=== PATIENT | female | born 1960 | race Caucasian/White ===

== ENCOUNTER 2016-12-03 17:28 | Observation (INO) ==
--- NOTE | 2016-12-03 17:33 | Emergency Department Note ---
Disposition Clinical Impression: Chest pain, Hypertension Disposition: Admitted As Inpatient Condition: Good Chest Pain HPI - General Chief Complaint: ED Chest Pain Stated Complaint: chest pain Time Seen by Provider: 12/03/16 17:28 Source: patient Mode of arrival: EMS Limitations: no limitations Vital Signs Reviewed: Yes Nursing Notes Reviewed: Yes - History of Present Illness HPI Narrative: Patient began to have chest pain and pressure at work today so she came to the emergency department for evaluation. There is still pain present upon arrival. She denies any shortness of breath. No nausea or vomiting or admitted to. She has not had pain like this before. Pt complaint: chest pain Onset (ago): day(s) (1) Duration: constant Onset: during rest Pain Location: substernal Severity: mild Improves with: nothing Worsens with: nothing - Related Data Home Medications Medication Instructions Recorded Confirmed CloNIDine HCl 0.1 mg PO BID 10/19/14 12/03/16 Ropinirole [Requip] 0.5 mg PO HS 10/19/14 12/03/16 Albuterol Sulfate [Proair Hfa] 2 puff IH PRN PRN 07/21/15 12/03/16 Estradiol [Evelyn] 1 each TD AD 07/21/15 12/03/16 Lisinopril 10 mg PO DAILY 07/21/15 12/03/16 Meclizine HCl [Verticalm] 25 mg PO DAILY PRN 07/21/15 12/03/16 Metoprolol Succinate 100 mg PO DAILY 07/21/15 12/03/16 Tizanidine HCl [Zanaflex] 4 mg PO BID PRN 07/21/15 12/03/16 Losartan [Cozaar] 50 mg PO DAILY 12/03/16 12/03/16 Previous Rx's Medication Instructions Recorded OxyCODONE/APAP 5/325 [Percocet 1 each PO Q6HR PRN #15 tablet 07/21/15 5/325 MG] Allergies Allergy/AdvReac Type Severity Reaction Status Date / Time levofloxacin [From Levaquin] AdvReac Rash Verified 10/19/14 21:44 All systems ED: reviewed and negative except as stated. Review of Systems: As Per HPI Constitutional: Denies: fever, chills, weakness, weight change Eyes: Denies: eye pain, eye discharge, vision change ENT ED: Denies: ear pain, throat pain, dental pain, hearing loss, epistaxis, congestion, dysphagia Cardiovascular: Denies: chest pain, palpitations, dyspnea on exertion, edema, syncope Respiratory: Denies: cough, dyspnea, wheezes, hemoptysis, stridor Gastrointestinal: Denies: abdominal pain, nausea, vomiting, diarrhea, constipation, hematemesis, melena, hematochezia Genitourinary: Denies: dysuria, frequency, hematuria, discharge Musculoskeletal: Denies: back pain, neck pain, arthralgia, myalgia Integumentary: Denies: rash, abrasion, lesions Neurological: Denies: headache, weakness, numbness, paresthesias, confusion, abnormal gait, vertigo Psychiatric: Denies: anxiety, depression, suicidal thoughts, homicidal thoughts , auditory hallucinations, visual hallucinations Endocrine: Denies: fatigue Hematological/Lymphatic: Denies: easy bleeding, easy bruising Allergic/Immunologic: Denies: facial swelling, urticaria Chest Pain PMH - Past Medical History Medical history: Reports: hypertension, other Surgical history: Reports: cholecystectomy, herniorrhaphy, hysterectomy, other Psychiatric history: Reports: no psych history - Social History Smoking Status: Unknown if ever smoked Alcohol use: Reports: none Drug use: Reports: none Physical Exam - General Limitations: no limitations General appearance: alert, in no apparent distress - Head Head exam: atraumatic, normocephalic, normal inspection - Eye Eye exam: Present: normal appearance, PERRL, EOMI - ENT ENT exam: normal exam, normal oropharynx, mucous membranes moist - Neck Neck exam: Present: normal inspection - Chest Chest inspection: Present: normal inspection, symmetric chest wall rise - Respiratory Respiratory exam: Present: normal lung sounds bilaterally - Cardiovascular Cardiovascular exam: Present: regular rate, normal rhythm, normal heart sounds - Abdominal Exam Abdominal exam: Present: soft, Non-Tender. Absent: tenderness, distention, guarding, rebound, rigidity - Extremities Exam Extremities exam: Present: normal inspection, full ROM. Absent: tenderness, pedal edema - Expanded Lower Extremity Exam Hip/Pelvis exam: Present: normal inspection, full ROM - Back Exam Back exam: Present: normal inspection, full ROM. Absent: tenderness - Neurological Exam Neurological exam: Present: alert, oriented X3 - Psychiatric Psychiatric exam: Present: normal affect, normal mood - Skin Skin exam: Present: warm, dry, intact Course Vital Signs Temperature 98.4 F 12/03/16 17:29 Pulse Rate 49 12/03/16 17:29 Respiratory Rate 16 12/03/16 17:29 Blood Pressure 203/102 12/03/16 17:29 O2 Sat by Pulse Oximetry 100 12/03/16 17:29 Temperature 97.6 F 12/04/16 00:00 Pulse Rate 52 12/04/16 00:00 Respiratory Rate 17 12/04/16 00:00 Blood Pressure 151/65 12/04/16 00:00 O2 Sat by Pulse Oximetry 95 12/04/16 00:00 Oxygen Delivery Oxygen Delivery Room Air Chest Pain - MDM Narrative Medical decision making narrative: Discussed with Dr. Beltrán agrees to accept the patient. Your blood pressure was elevated today so please follow up with your doctor for a recheck - Lab Data Lab results reviewed: Yes I reviewed the patient's lab results. Result diagrams: 12/03/16 17:34 12/03/16 17:56 Lab Results 12/03/16 12/03/16 12/03/16 Range/Units 17:34 17:49 17:56 WBC 8.7 (4.3-11.1) K/mcL RBC 4.30 (3.82-4.97) M/mcL Hgb 14.9 (11.5-15.4) g/dL Hct 40.4 (35.3-44.9) % MCV 94.0 (83.0-100.0) fL MCH 34.7 H (28.0-33.3) pg MCHC 36.9 H (31.6-35.5) g/dL RDW 14.0 (11.5-14.5) % Plt Count 319 (140-400) K/mcL MPV 10.7 (9.4-12.4) fL Immature Gran % 0.2 (0-4) % Seg Neutrophils % 52.2 % Lymphocytes % 36.6 % Monocytes % 7.9 % Eosinophils % 2.4 % Basophils % 0.7 % Neutrophils # 4.5 (1.6-8.9) K/mcL Lymphocytes # 3.2 (0.6-4.6) K/mcL Monocytes # 0.7 (0.0-1.3) K/mcL Eosinophils # 0.2 (0.0-0.6) K/mcL Basophils # 0.1 (0.0-0.2) K/mcL Sodium 142 (136-145) mEq/L Potassium 4.2 (3.5-4.5) mEq/L Chloride 109 (98-109) mEq/L Carbon Dioxide 26 (19-29) mEq/L BUN 7 (7-20) mg/dL Creatinine 0.69 (0.57-1.11) mg/dL Est GFR ( Amer) > 60 (> 60) Est GFR (Non-Af Amer) > 60 (> 60) BUN/Creatinine Ratio 10 (6-26) Glucose 89 (70-99) mg/dL Calculated Osmolality 291 (280-300) Calcium 9.7 (8.6-10.8) mg/dL Total Bilirubin 0.3 (0.2-1.2) mg/dL AST 20 (5-34) Units/L ALT 13 (0-55) Units/L Alkaline Phosphatase 72 (38-126) Units/L Troponin I (0-0.03) ng/mL Serum Total Protein 7.0 (6.0-8.3) g/dL Albumin 3.5 (3.5-5.0) g/dL Globulin 3.5 (2.4-3.5) g/dL Albumin/Globulin Ratio 1.0 L (1.1-2.2) Urine Color Yellow (Yellow) Urine Clarity Clear (Clear) Urine pH 6.0 (5.0-8.0) pH Units Ur Specific Campbell 1.020 (1.010-1.025) Urine Protein Negative (Neg-Trace) mg/dL Urine Glucose (UA) Normal (Normal) mg/dL Urine Ketones Negative (Negative) mg/dL Urine Blood Large H (Negative) Urine Nitrite Negative (Negative) Urine Bilirubin Negative (Negative) Urine Urobilinogen Normal (Normal) mg/dL Ur Leukocyte Esterase Negative (Negative) Urine Microscopic RBC 15-30 H (0-3) per hpf Urine Microscopic WBC 0-3 (0-3) per hpf Ur Squamous Epith Cells Many H (None-Few) per lpf Urine Bacteria Many H (None-Few) per hpf Ur Culture Indicated? NO (NO) 12/03/16 Range/Units 17:56 WBC (4.3-11.1) K/mcL RBC (3.82-4.97) M/mcL Hgb (11.5-15.4) g/dL Hct (35.3-44.9) % MCV (83.0-100.0) fL MCH (28.0-33.3) pg MCHC (31.6-35.5) g/dL RDW (11.5-14.5) % Plt Count (140-400) K/mcL MPV (9.4-12.4) fL Immature Gran % (0-4) % Seg Neutrophils % % Lymphocytes % % Monocytes % % Eosinophils % % Basophils % % Neutrophils # (1.6-8.9) K/mcL Lymphocytes # (0.6-4.6) K/mcL Monocytes # (0.0-1.3) K/mcL Eosinophils # (0.0-0.6) K/mcL Basophils # (0.0-0.2) K/mcL Sodium (136-145) mEq/L Potassium (3.5-4.5) mEq/L Chloride (98-109) mEq/L Carbon Dioxide (19-29) mEq/L BUN (7-20) mg/dL Creatinine (0.57-1.11) mg/dL Est GFR ( Amer) (> 60) Est GFR (Non-Af Amer) (> 60) BUN/Creatinine Ratio (6-26) Glucose (70-99) mg/dL Calculated Osmolality (280-300) Calcium (8.6-10.8) mg/dL Total Bilirubin (0.2-1.2) mg/dL AST (5-34) Units/L ALT (0-55) Units/L Alkaline Phosphatase (38-126) Units/L Troponin I 0.01 (0-0.03) ng/mL Serum Total Protein (6.0-8.3) g/dL Albumin (3.5-5.0) g/dL Globulin (2.4-3.5) g/dL Albumin/Globulin Ratio (1.1-2.2) Urine Color (Yellow) Urine Clarity (Clear) Urine pH (5.0-8.0) pH Units Ur Specific Campbell (1.010-1.025) Urine Protein (Neg-Trace) mg/dL Urine Glucose (UA) (Normal) mg/dL Urine Ketones (Negative) mg/dL Urine Blood (Negative) Urine Nitrite (Negative) Urine Bilirubin (Negative) Urine Urobilinogen (Normal) mg/dL Ur Leukocyte Esterase (Negative) Urine Microscopic RBC (0-3) per hpf Urine Microscopic WBC (0-3) per hpf Ur Squamous Epith Cells (None-Few) per lpf Urine Bacteria (None-Few) per hpf Ur Culture Indicated? (NO) - Radiology Data Radiology results reviewed: Yes I reviewed the patient's radiology results. - EKG Data EKG attestation: Yes I reviewed and interpreted this EKG. EKG results narrative: EKG shows sinus bradycardia without acute ST or T-wave changes. Rate is 51 bpm R axis 75 degrees no acute ischemia noted. As read by myself.
[2016-12-03 17:56] LABS: Bilirubin,Urine Negative (Negative); Blood,Urine Large (Negative); Clarity,Urine Clear (Clear); Color,Urine Yellow (Yellow); Glucose,Urine (UA) Normal (Normal); Ketones,Urine Negative (Negative); Leukocyte Esterase,Urine Negative (Negative); Nitrite,Urine Negative (Negative); Protein,Urine Negative (Neg-Trace); Urobilinogen,Urine Normal (Normal)
[2016-12-03] MEDS: Nitroglycerin 0.4 MG TAB.SUBL SL PRN ×3 (17:57→18:26)
[2016-12-03 18:01] LABS: Bacteria,Urine Many per hpf (None-Few); RBC,Urine 15-30 per hpf (0-3); Squamous Epithelial Cell,Urine Many per lpf (None-Few); WBC,Urine 0-3 per hpf (0-3)
[2016-12-03 18:20] LABS: Basophils # 0.1 K/mcL (0.0-0.2); Basophils % 0.7 %; Eosinophils # 0.2 K/mcL (0.0-0.6); Eosinophils % 2.4 %; Hematocrit 40.4 % (35.3-44.9); Hemoglobin 14.9 g/dL (11.5-15.4); Immature Granulocytes % 0.2 % (0-4); Lymphocytes # 3.2 K/mcL (0.6-4.6); Lymphocytes % 36.6 %; Mean Corpuscular HGB Conc 36.9 g/dL (31.6-35.5); Mean Corpuscular Hemoglobin 34.7 pg (28.0-33.3); Mean Platelet Volume 10.7 fL (9.4-12.4); Monocytes # 0.7 K/mcL (0.0-1.3); Monocytes % 7.9 %; Neutrophils # 4.5 K/mcL (1.6-8.9); Platelet Count 319 K/mcL (140-400); Segmented Neutrophils % 52.2 %
[2016-12-03 18:31] LABS: Alanine Aminotransferase 13 Units/L (0-55); Albumin 3.5 g/dL (3.5-5.0); Alkaline Phosphatase 72 Units/L (38-126); Aspartate Amino Transferase 20 Units/L (5-34); BUN/Creatinine Ratio 10 (6-26); Bilirubin,Total 0.3 mg/dL (0.2-1.2); Blood Urea Nitrogen 7 mg/dL (7-20); Calcium 9.7 mg/dL (8.6-10.8); Carbon Dioxide 26 mEq/L (19-29); Chloride 109 mEq/L (98-109); Globulin 3.5 g/dL (2.4-3.5); Glucose 89 mg/dL (70-99); Osmolality,Calculated 291 (280-300); Potassium 4.2 mEq/L (3.5-4.5); Sodium 142 mEq/L (136-145); eGFR For African Americans > 60 (> 60); eGFR For Non-African Americans > 60 (> 60)
[2016-12-03] MEDS ORDERED: Nitroglycerin 1 INCH/GM PACKET TP ONE (18:37)
[2016-12-03] MEDS ORDERED: Nitroglycerin 0.4 MG TAB.SUBL SL PRN (20:46)
[2016-12-03] MEDS ORDERED: tiZANidine 4 MG TABLET PO PRN (20:46)
[2016-12-03] MEDS ORDERED: *HR* OxyCODONE/APAP 5/325 TABLET PO PRN (20:46)
[2016-12-03] MEDS ORDERED: rOPINIRole 0.25 MG TABLET PO SCH (21:00)
[2016-12-03 21:09] LABS: Prothrombin Time 10.8 Seconds (9.4-12.1)
[2016-12-03 21:12] LABS: Activated Partial Thrombo Time 30.1 Seconds (26.0-36.0)
[2016-12-03] MEDS ORDERED: Metoprolol XL (24 HR) Succ 50 MG TAB.ER.24H PO SCH (21:45)
[2016-12-03] MEDS: ESTRADIOL TP SCH (21:48)
[2016-12-03] MEDS: cloNIDine HCl 0.1 MG TABLET PO SCH (22:13)
[2016-12-04 07:53] VITALS: BP 119/67
[2016-12-04] MEDS: cloNIDine HCl 0.1 MG TABLET PO SCH (08:28)
[2016-12-04] MEDS ORDERED: Metoprolol XL (24 HR) Succ 50 MG TAB.ER.24H PO SCH (09:00)
[2016-12-04] MEDS ORDERED: *HR* OxyCODONE/APAP 5/325 TABLET PO PRN (09:36)
[2016-12-04] MEDS: ESTRADIOL TP SCH (09:55)
--- NOTE | 2016-12-04 11:14 | Internal Med History&Physical ---
Date of Encounter: 12/04/16 Time of Encounter: 11:11 Assessment and Plan (1) Chest pain Current visit: Yes Status: Acute Chest pain is resolved problem was negative EKG is negative etc. She has a follow-up appointment with Dr. Gray. I reviewed her past history. 2014 she had a stress test which was negative. She had an echocardiogram which showed an EF of 70%. She also had vascular testing or lower extremities which was normal. I have emphasized for her not to miss this appointment and she has one already with Dr. Gray on 1017. Qualifiers: Chest pain type: unspecified Qualified Code(s): R07.9 - Chest pain, unspecified (2) Hypertension Current visit: Yes Status: Acute History of hypertension blood pressure well controlled today Qualifiers: Hypertension type: essential hypertension Qualified Code(s): I10 - Essential (primary) hypertension Internal Medicine - H&P: HPI Chief complaint: Chest pain Admitted From: Emergency Dept Plans for Post Hospital Care: Home History of present illness: Ms. Aleman is a 56 year old female who presented to emergency room with chest pain from work. She got dressed and went to work start feeling some chest discomfort. It was nonradiating she denies any diaphoresis or shortness of breath and she subsequently was worked up in the emergency room. EKG showed no change the program was negative and chest pain resolved with nitroglycerin. She does have a history of hypertension. Past Med Surg Social Fam HX - Past Medical History Medical history: hypertension, other Psychiatric history: no psych history - Past Surgical History Surgical History: cholecystectomy, herniorrhaphy, hysterectomy, other - Social History Smoking Status: Unknown if ever smoked Smokeless Tobacco Status: No Alcohol use: none Drug use: none - Family History Mother Living Status: Age at : 42 Cause of : Ovarian Cancer Hx Family Cardiac Disorders: No Hx Family Respiratory Disorders: No Hx Family Cancer: Yes (Ovarian) Hx Family GI Disorders: No Hx Family Genitourinary Disorders: No Hx Family Endocrine Disorder: No Hx Family Musculoskeletal Disorders: No Hx Family Neuromuscular Disorders: No Hx Family Neurologic Disorders: No Hx Family HEENT Disorders: No Hx Family Autoimmune Disorders: No Hx Family Reproductive Disorders: No Hx Family Psychosocial Disorders: No Hx Family Medical Disorders: No Father Age: 80 Living Status: Still Living Hx Family Cardiac Disorders: Yes (CABG, HTN, HLD,) Hx Family Respiratory Disorders: No Hx Family Cancer: No Hx Family GI Disorders: No Hx Family Genitourinary Disorders: No Hx Family Endocrine Disorder: Yes (DM) Hx Family Musculoskeletal Disorders: No Hx Family Neuromuscular Disorders: No Hx Family Neurologic Disorders: Yes (Parkinsons) Hx Family HEENT Disorders: No Hx Family Autoimmune Disorders: No Hx Family Reproductive Disorders: No Hx Family Psychosocial Disorders: No Hx Family Medical Disorders: No Internal Medicine - H&P: Meds CloNIDine HCl 0.1 mg PO BID 10/19/14 [History] Ropinirole [Requip] 0.5 mg PO HS 10/19/14 [History] Albuterol Sulfate [Proair Hfa] 2 puff IH PRN PRN 07/21/15 [History] Estradiol [Evelyn] 1 each TD AD 07/21/15 [History] Lisinopril 10 mg PO DAILY 07/21/15 [History] Meclizine HCl [Verticalm] 25 mg PO DAILY PRN 07/21/15 [History] Metoprolol Succinate 100 mg PO DAILY 07/21/15 [History] OxyCODONE/APAP 5/325 [Percocet 5/325 MG] 1 each PO Q6HR PRN #15 tablet 07/21/15 [Rx] Tizanidine HCl [Zanaflex] 4 mg PO BID PRN 07/21/15 [History] Losartan [Cozaar] 50 mg PO DAILY 12/03/16 [History] 3 Allergy/AdvReac Type Severity Reaction Status Date / Time levofloxacin [From Levaquin] AdvReac Rash Verified 10/19/14 21:44 lisinopril AdvReac Difficulty Verified 12/04/16 08:25 Breathing All Systems PM: A 10-system review of systems was performed and is negative for pertinent findings except as documented above in the HPI. - Constitutional Vitals: Temp Pulse Resp BP Pulse Ox 97.9 F 53 16 119/67 96 12/04/16 07:52 12/04/16 07:52 12/04/16 07:52 12/04/16 07:52 12/04/16 07:52 - Head Head exam: Present: atraumatic, normal inspection, normocephalic - Neck Neck exam general surgery: Present: supple, trachea midline. Absent: lymphadenopathy - Respiratory Respiratory exam: Present: CTAB. Absent: accessory muscle use, rales, rhonchi, wheezes - Cardiovascular Cardiovascular exam: Present: RRR, +S1, +S2. Absent: diastolic murmur, gallop, rubs, systolic murmur - GI/Abdominal GI/Abdominal exam: Present: normal bowel sounds, soft, no peritoneal signs. Absent: distended, tenderness Additional comments: No bruits no rebound abdomen is benign Internal Med - H&P Results - Labs CBC & Chem 7: 12/03/16 17:34 12/03/16 17:56 Labs: Cardiac Enzymes 12/04/16 12/04/16 Range/Units 00:12 05:47 Troponin I 0.00 0.00 (0-0.03) ng/mL All of her lab is normal troponin as you can see 000
--- NOTE | 2016-12-04 11:54 | Discharge Summary ---
Date of Encounter: 12/04/16 Time of Encounter: 11:51 - Discharge Diagnosis (1) Chest pain Priority: Primary Status: Acute Qualifiers: Chest pain type: unspecified Qualified Code(s): R07.9 - Chest pain, unspecified (2) Hypertension Priority: Secondary Status: Acute Qualifiers: Hypertension type: essential hypertension Qualified Code(s): I10 - Essential (primary) hypertension - Discharge Medications Home Medications: CloNIDine HCl 0.1 mg PO BID 10/19/14 [History] Ropinirole [Requip] 0.5 mg PO HS 10/19/14 [History] Albuterol Sulfate [Proair Hfa] 2 puff IH PRN PRN 07/21/15 [History] Estradiol [Evelyn] 1 each TD AD 07/21/15 [History] Meclizine HCl [Verticalm] 25 mg PO DAILY PRN 07/21/15 [History] Metoprolol Succinate 100 mg PO DAILY 07/21/15 [History] OxyCODONE/APAP 5/325 [Percocet 5/325 MG] 1 each PO Q6HR PRN #15 tablet 07/21/15 [Rx] Tizanidine HCl [Zanaflex] 4 mg PO BID PRN 07/21/15 [History] Losartan [Cozaar] 50 mg PO DAILY 12/03/16 [History] Allergies/Adverse Reactions: 3 Allergy/AdvReac Type Severity Reaction Status Date / Time levofloxacin [From Levaquin] AdvReac Rash Verified 10/19/14 21:44 lisinopril AdvReac Difficulty Verified 12/04/16 08:25 Breathing Date of admission: 12/03/16 20:32 Primary care physician: Lise Perez CNP Discharging clinician: Greyson Beltrán Anticipated date of discharge: 12/04/16 - Patient Status Disposition: Home, Self-Care Condition: Good Functional capacity at discharge: independent ambulation Overall status at discharge: patient is back to baseline (Her last day at work this week is tomorrow [employer] off until Friday. And she is been explained to that should the chest pain returns she is to come immediately to a hospital) - Discharge Instructions Follow Up With: Lise Perez CNP [Primary Care Provider] - Interval History: No more chest pain upon admission troponins were negative Hospital course: Ms. Aleman is a 56 year old female Patient is feeling better. Blood pressure well controlled troponins negative EKG is okay. Previous testing that I researched showed she had a normal stress test and normal lower vascular studies. - Time Spent with Patient Total time spent providing and/or coordinating discharge services: Less than 30 minutes - Constitutional Vitals: Temp Pulse Resp BP Pulse Ox 97.9 F 53 16 119/67 96 12/04/16 07:52 12/04/16 07:52 12/04/16 07:52 12/04/16 07:52 12/04/16 07:52 - Head Head exam: Present: atraumatic, normal inspection, normocephalic - Neck Neck exam general surgery: Present: supple, trachea midline. Absent: lymphadenopathy - Respiratory Respiratory exam: Present: CTAB. Absent: accessory muscle use, rales, rhonchi, wheezes - Cardiovascular Cardiovascular exam: Present: RRR, +S1, +S2. Absent: diastolic murmur, gallop, rubs, systolic murmur
--- NOTE | 2016-12-04 20:15 | Electrocardiograph Report ---
[address] [address] Test Date: 2016-12-03 Pat Name: Kim Aleman Department: 2000 Room: 114 Gender: F Director Stars: : 1960 Requested By: Geovanny Call Order Number: [id number] Reading MD: Travon Pandey MD Measurements Intervals [place] Rate: 51 P: 88 NM: 171 QRS: 75 QRSD: 92 T: 78 QT: 413 QTc: 390 Interpretive Statements SINUS BRADYCARDIA BASELINE ARTIFACT Electronically Signed On 12-04-2016 20:13:25 EDT by Travon Pandey MD
== END 2016-12-04 13:00 | disposition home or self-care (01) ==
LOC: EMEROOGRE 17:28 → INPGRE 17:28
PROVIDERS: ADMIT Internal Medicine; ATTEND Internal Medicine